=== PATIENT | female | born 2000 | race Caucasian/White ===

== ENCOUNTER 2023-12-09 15:24 | Emergency (ER) | payer MEDICAID, SELFPAY ==
[2023-12-09 15:31] VITALS: BP 115/76; PULSE 76; O2SAT 99
[2023-12-09 15:33] VITALS: BP 115/76; PULSE 78; RESP 16; TEMP 36.8; O2SAT 99; BMI 38.0
--- NOTE | 2023-12-09 15:35 | XR_ITS ---
PROCEDURE INFORMATION: Exam: XR Right Ankle Exam date and time: 12/09/2023 5:21 PM Age: 23 years old Clinical indication: Injury or trauma; Other: Inversion injury; Work related; Blunt trauma; Ankle; Right; Additional info: Inversion injury last night, lateral sided pain TECHNIQUE: Imaging protocol: Radiologic exam of the right ankle. Views: 3 or more views. COMPARISON: No relevant prior studies available. FINDINGS: Bones/joints: No acute fracture or malalignment. Soft tissues: Mild lateral ankle soft tissue swelling. IMPRESSION: No acute osseous findings.
--- NOTE | 2023-12-09 15:36 | ED_ITS ---
Discharge Plan Disposition Chief Complaint: Extremity Injury, Lower Prescriptions Prescriptions: No Action No Known Home Medications Referrals Follow up/Referrals: Jairo Evans II, MD [Primary Care Provider] - See instructions Rahul Sarah DO [Staff Physician] - See instructions Activity Restrictions/Add. Instructions Additional Instructions/Restrictions: At this time it was felt you are safe to be discharged home. If new or worsening symptoms please do not hesitate to return the emergency department. Please use your crutches, ice, rest, compression, elevation over the next few days as you are able and bear weight as you are able. If symptoms persist beyond 1 week please call and schedule an appointment with Dr. Sarah's office. Clinical Impressions Clinical Impression: Ankle sprain and strain Discharge ED Provider: Rashad George General Adult HPI General Chief complaint: Extremity Injury, Lower Stated complaint: AO 12/08/23 2245 injury right ankle Time Seen by Provider: 12/09/23 15:30 History of Present Illness HPI narrative: Patient is a 23-year-old female with no pertinent past medical history presents emergency department for evaluation of traumatic injury sustained to her right ankle. 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 No other traumatic injuries described. Due to persistent pain she presents here for continued evaluation. No blood thinners. Related Data Home Medications Medication Instructions Recorded Confirmed No Known Home Medications 12/09/23 12/09/23 Allergies Allergy/AdvReac Type Severity Reaction Status Date / Time No Known Allergies Allergy Verified 12/09/23 15:48 [facility] Disclaimer: The information contained in this section may have been updated after the patient was seen, as this information can be updated by other users. Social History Smoking Status: Never smoker alcohol intake: never current occupational status: other Travel in the last 8 weeks: None ROS Obtained: Yes Systems reviewed as appropriate & no additional complaints ex cept as documented Physical Exam General General appearance: alert and in no apparent distress Head Head exam: atraumatic and normocephalic Eye Eye exam: Present PERRL and EOMI ENT ENT exam: Present mucous membranes moist Neck Neck exam: Present normal inspection Chest Chest inspection: Present normal inspection and symmetric chest wall rise Respiratory Respiratory exam: Absent respiratory distress Cardiovascular Cardiovascular exam: Present regular rate and normal rhythm Abdominal Exam Abdominal exam: Present soft Extremities Exam Extremities exam: Present other (Mildly swollen medial and lateral malleolus on the right, palpable dorsal pedal pulse, distally neurovascularly intact) Neurological Exam Neurological exam: Present alert Psychiatric Psychiatric exam: Present normal affect Skin Skin exam: Present warm and dry Medical Decision Making James Inquiry Pt receiving controlled substance: No Vital Signs: 12/09/23 15:31 12/09/23 15:33 12/09/23 16:00 Temperature 98.2 F Temperature Source Oral Pulse Rate 76 64 Pulse Rate [Left] 78 Respiratory Rate 16 Blood Pressure 115/76 118/79 Blood Pressure [Right Arm] 115/76 Blood Pressure Mean 90 Blood Pressure Mean [Right Arm] 89 Blood Pressure Source [Right Arm] Automatic Cuff Blood Pressure Position [Right Arm] Sitting 02 Sat by Pulse Oximetry 99 99 97 Oxygen Delivery Method Room Air Orders (Tests/Meds): ED MEDICATIONS Discontinued Medications Generic Name Dose Route Start Last Admin Trade Name Freq PRN Reason Stop Dose Admin Acetaminophen 1,000 mg 12/09/23 15:35 12/09/23 15:53 Acetaminophen 500mg Tab PO 12/09/23 15:36 1,000 mg ONCE ONE Administration Ibuprofen 600 mg 12/09/23 15:35 12/09/23 15:53 Ibuprofen 600 Mg Tablet PO 12/09/23 15:36 600 mg ONCE ONE Administration ORDERS Category Date Time Status Ankle XR -Right minimum 3 Views [XR ankle RT min 3V] Exams 12/09/23 15:35 Completed Stat Medical Decision Narrative: In summary patient is a 23-year-old female past medical history described above who presents emergency department for evaluation traumatic injury sustained to her right ankle. Patient is hemodynamically stable and nontoxic-appearing upon arrival, afebrile. Differential diagnosis includes fracture, sprain, among others. Limited workup will be conducted with plain film of the right ankle, initial interventions include Tylenol and ibuprofen. X-ray informally interpreted by me, no acute fracture. Formal read shows the same. Patient was given crutches and Anurag wrap at bedside and if symptoms persist will follow-up with family doctor. Critical Care Critical Care Time Critical Care Time: No
[2023-12-09] MEDS: ACETAMINOPHEN 500MG TAB 1000 MG PO (15:53)
[2023-12-09] MEDS: IBUPROFEN 600 MG TABLET PO (15:53)
[2023-12-09 16:00] VITALS: BP 118/79; PULSE 64; O2SAT 97
[2023-12-09 18:51] VITALS: BP 118/79; PULSE 64; RESP 16; TEMP 36.8; O2SAT 96
== END 2023-12-09 18:52 | disposition home or self-care (01) ==
PROVIDERS: Emergency Provider Emergency Medicine; PCP Family Medicine
DX: S93.401A Sprain of unspecified ligament of right ankle, initial encounter (principal); S96.911A Strain of unspecified muscle and tendon at ankle and foot level, right foot, initial encounter; W50.0XXA Accidental hit or strike by another person, initial encounter
CPT/HCPCS: 73610; 99283